=== PATIENT | female | born 1995 | race Two or more races ===

== ENCOUNTER 2021-06-22 21:42 | Emergency (ER) | payer MEDICAID ==
[~2021-06-22] VITALS: Ht 160 cm; Wt 73.0 kg
[2021-06-22 22:31] LABS: CLARITY URINE CLEAR (CLEAR); COLOR URINE YELLOW (YELLOW); KETONES URINE NEGATIVE (NEGATIVE); LEUKOCYTE ESTERASE URINE NEGATIVE (NEGATIVE); NITRITE URINE NEGATIVE (NEGATIVE); OCCULT BLOOD URINE TRACE (NEGATIVE); PROTEIN URINE NEGATIVE (NEGATIVE); SPECIFIC GRAVITY URINE 1.024 (1.005-1.030); UROBILINOGEN URINE 0.2 E.U./dL (0.2-1.0)
[2021-06-23] MEDS ORDERED: KETOROLAC 15MG/ML VIAL IV ONE (00:15)
[2021-06-23] MEDS ORDERED: SODIUM CHLORIDE 0.9% 1,000 ML IV ONE (00:15)
[2021-06-23 01:01] LABS: BASOPHILS % 0.5 % (0.0-2.0); HEMOGLOBIN. 13.2 g/dL (12.0-16.0); LYMPHOCYTES % 19.8 % (20.0-50.0); MEAN CORPUSCULAR VOLUME 82.7 fL (81.0-99.0); MEAN PLATELET VOLUME 8.7 fl (7.4-10.4); MONOCYTES % 5.4 % (2.0-8.0); NEUTROPHILS % 73.3 % (40.0-76.0); PLATELET 303 x1000/uL (130-400); RED BLOOD CELL COUNT 4.72 mill/uL (4.2-5.4); RED CELL DISTRIBUTION WIDTH 14.7 % (11.6-14.6)
[2021-06-23 01:03] LABS: CHLORIDE 107 mEq/L (98-107)
[2021-06-23] MEDS ORDERED: IBUP-2029 MT (02:06)
[2021-06-23 02:47] VITALS: BP 120/78
== END 2021-06-23 02:48 | disposition home or self-care (01) ==
LOC: ER 21:42
DX: R10.30 Lower abdominal pain, unspecified (principal); R50.9 Fever, unspecified; M54.9 Dorsalgia, unspecified; Z87.440 Personal history of urinary (tract) infections
CPT/HCPCS: 36415; 74176; 80053; 81003; 81025; 83690; 85025; 96361; 96374; 99284; J1885; J7030